=== PATIENT | male | born 1925 | race Two or more races ===

== ENCOUNTER 2017-07-22 13:19 | Outpatient (CLI) | payer OTHER | END 2017-07-22 13:23 | disposition home or self-care (01) | LOC: LAB 13:19 | DX: C61 Malignant neoplasm of prostate (principal); N39.0 Urinary tract infection, site not specified ==

== ENCOUNTER → 2017-08-08 07:11 | Outpatient (CLI) | payer OTHER | END | disposition home or self-care (01) | LOC: LAB 07:11 | DX: I10 Essential (primary) hypertension (principal); E11.9 Type 2 diabetes mellitus without complications ==

== ENCOUNTER 2017-08-16 10:27 | Outpatient (CLI) | payer OTHER | END 2017-08-16 10:42 | disposition home or self-care (01) | LOC: LAB 10:27 | DX: R91.1 Solitary pulmonary nodule (principal) ==

== ENCOUNTER 2017-09-15 03:33 | Emergency (ER) | payer OTHER ==
[~2017-09-15] VITALS: Ht 180.3 cm; Wt 68.0 kg
== END 2017-09-15 13:12 | disposition expired ==
LOC: ER 03:33 → CPU-OBS 03:35 → ER 03:35
DX: R57.0 Cardiogenic shock (principal); A41.9 Sepsis, unspecified organism; R65.20 Severe sepsis without septic shock; C78.00 Secondary malignant neoplasm of unspecified lung; E86.0 Dehydration; M54.89 Other dorsalgia; I95.89 Other hypotension; I47.1 Supraventricular tachycardia; R06.02 Shortness of breath; R00.1 Bradycardia, unspecified; Z66 Do not resuscitate